=== PATIENT | male | born 1990 | race Caucasian/White ===

== ENCOUNTER 2016-12-25 14:44 | Emergency (ER) | payer OTHER | END 2016-12-25 15:05 | disposition home or self-care (01) | LOC: ER1 14:44 | DX: K05.219 Aggressive periodontitis, localized, unspecified severity (principal); K02.9 Dental caries, unspecified; F17.210 Nicotine dependence, cigarettes, uncomplicated; Z88.2 Allergy status to sulfonamides | CPT/HCPCS: 99282 ==

== ENCOUNTER 2017-02-12 20:48 | Emergency (ER) | payer OTHER | END 2017-02-12 21:25 | disposition home or self-care (01) | LOC: ER1 20:48 | DX: S00.81XA Abrasion of other part of head, initial encounter (principal); K04.7 Periapical abscess without sinus; F17.210 Nicotine dependence, cigarettes, uncomplicated; Z23 Encounter for immunization; W01.198A Fall on same level from slipping, tripping and stumbling with subsequent striking against other object, initial encounter; Y92.009 Unspecified place in unspecified non-institutional (private) residence as the place of occurrence of the external cause | CPT/HCPCS: 90471; 90715; 99282 ==